=== PATIENT | female | born 1995 | race Caucasian/White ===

== ENCOUNTER 2025-07-31 10:09 | Emergency (ER) | payer MEDICAID, BC ==
[~2025-07-31] VITALS: Ht 177.8 cm; Wt 81.0 kg
[2025-07-31 10:19] VITALS: TEMP 36.7; O2SAT 98
[2025-07-31] MEDS: LIDOCAINE HCL 1% 20ML VIAL INFIL ONE (11:21)
[2025-07-31] MEDS: BACITRACIN ZINC OINT UDPKT TOP ONE (11:21)
[2025-07-31] MEDS ORDERED: BO1 TP (13:00)
[2025-07-31] MEDS: TETANUS, DIPHTHERIA, PERTUSSIS VAC/PF 0.5ML (>10YR OLD) IM ONE (13:00)
[2025-07-31 13:53] VITALS: BP 110/78; PULSE 86; RESP 16; O2SAT 100
== END 2025-07-31 13:55 | disposition home or self-care (01) ==
LOC: ER 10:09
DX: S91.202A Unspecified open wound of left great toe with damage to nail, initial encounter (principal); W23.0XXA Caught, crushed, jammed, or pinched between moving objects, initial encounter; Y93.89 Activity, other specified; Y92.89 Other specified places as the place of occurrence of the external cause; Y99.8 Other external cause status
CPT/HCPCS: 81025; 73630; 90715; 11730; 90471; 99284; J2003; Z7610

== ENCOUNTER 2025-09-03 10:53 | Emergency (ER) | payer BC, MEDICAID ==
[~2025-09-03] VITALS: Ht 177.8 cm; Wt 81.0 kg
[~2025-09-03 10:53] MED LIST: BO1 TP
[2025-09-03 10:59] VITALS: O2SAT 100
[2025-09-03 12:13] LABS: BASOPHILS % 1.2 % (0.0-2.0); EOSINOPHILS % 0.9 % (0.0-5.0); HEMATOCRIT. 34.4 % (36.0-48.0); HEMOGLOBIN. 10.6 g/dL (12.0-16.0); LYMPHOCYTES % 41.4 % (20.0-50.0); MEAN PLATELET VOLUME 9.1 fl (7.4-10.4); MONOCYTES % 10.6 % (2.0-8.0); NEUTROPHILS % 45.9 % (40.0-76.0); PLATELET 473 x1000/uL (130-400); RED BLOOD CELL COUNT 4.00 mill/uL (4.2-5.4); RED CELL DISTRIBUTION WIDTH 16.8 % (11.6-14.6)
[2025-09-03 12:29] LABS: CREATININE 0.6 mg/dL (0.6-1.0)
[2025-09-03 12:30] LABS: UREA NITROGEN BLOOD < 5 mg/dL (9-23)
[2025-09-03 12:31] LABS: B-HCG QUANTITATIVE < 1 mIU/mL (<6)
[2025-09-03 13:07] VITALS: BP 118/88; PULSE 78; RESP 16; TEMP 36.9; O2SAT 100
== END 2025-09-03 13:08 | disposition home or self-care (01) ==
LOC: ER 10:53
DX: N93.8 Other specified abnormal uterine and vaginal bleeding (principal); Z98.890 Other specified postprocedural states; Z55.6 Problems related to health literacy
CPT/HCPCS: 36415; 80048; 81025; 84702; 85025; 86850; 86900; 99283